=== PATIENT | male | born 1945 | race Caucasian/White ===

== ENCOUNTER 2018-08-16 07:26 | Day surgery (SDC) | payer MEDICARE ==
[~2018-08-16 07:26] MED LIST: RINGERS SOLUTION,LACTATED 1,000 ML IV ONE
[2018-08-16] MEDS ORDERED: PROPOFOL 10 MG/ML VIAL IV ONE (07:27)
[2018-08-16] MEDS ORDERED: MIDAZOLAM HCL 2MG/2ML VIAL IV ONE (07:27)
[2018-08-16] MEDS ORDERED: FENTANYL PF 100MCG/2ML VIAL IV ONE (07:27)
[2018-08-16] MEDS ORDERED: LIDOCAINE 2% MDV (20MG/ML) 20ML VIAL IV ONE (07:27)
[2018-08-16] MEDS ORDERED: LIDOCAINE 1% W/EPI 1:100,000 MDV 20 ML VIAL SQ ONE (10:05)
[2018-08-16] MEDS ORDERED: BUPIVACAINE 0.5% W/EPI MPF 30 ML VIAL SQ ONE (10:05)
[2018-08-16] MEDS ORDERED: DEXAMETHASONE PRESERVATIVE FREE 10MG/ML VIAL SQ ONE (10:05)
[2018-08-16] MEDS ORDERED: RINGERS SOLUTION,LACTATED 600 ML IV ONE (10:17)
--- NOTE | 2018-08-18 09:51 | Operative Note ---
DATE OF SURGERY: 08/16/2018 PREOPERATIVE DIAGNOSIS: Cervical spondylosis without myelopathy. ICD 10 code M47.812 SURGERY: Radiofrequency rhizotomy left cervical facets 3-4, 4-5, and 5-6. SURGEON: Tomas King D.O. Primary: Michelle Anesthesia: Local with sedation. Anesthesia Provider: Latonia Malcolm. INDICATIONS: This patient presents with pain which is left-sided neck and shoulder. Diagnostics showed significant plate spring and osteophytic formation and facet series 75% pain control. Due to the failure of therapy and success of the facet series, the patient presents for rhizotomy for more supervisor intermediates relief. PROCEDURE: Intravenous line, vital signs monitored, IV sedation, prep and drape in sterile technique. The patient positioned prone, sterile prep and sterile technique. The cervical facets in the area of pain were identified and marked 3-4, 4-5, and 5-6 on the left. The skin infiltrated. A 22 gauge rhizotomy cannula positioned. Stimulator trials conducted. Rhizotomy burn performed, local anti-inflammatory in the sites. Topical antibiotic and sterile dressing applied. We will monitor and evaluate. CC: Dr. Michelle BARONE
== END 2018-08-16 10:52 | disposition home or self-care (01) ==
LOC: SUR 07:26
PROVIDERS: ATTEND Pain Medicine Interventional Pain Medicine
DX: M47.812 Spondylosis without myelopathy or radiculopathy, cervical region (principal); I10 Essential (primary) hypertension; E78.00 Pure hypercholesterolemia, unspecified; E11.9 Type 2 diabetes mellitus without complications; Z79.4 Long term (current) use of insulin; Z95.5 Presence of coronary angioplasty implant and graft; E03.9 Hypothyroidism, unspecified
CPT/HCPCS: J7120